=== PATIENT | female | born 1995 | race Caucasian/White ===

== ENCOUNTER 2018-02-27 11:31 | Inpatient (IN) | payer MEDICAID ==
[2018-02-27] MEDS: INSULIN REGULAR 100 UNIT/ML 3ML VIAL. IV (11:45)
[2018-02-27 12:06] LABS: BILIRUBIN,URINE NEGATIVE (NEG); CLARITY,URINE CLEAR; COLOR,URINE YELLOW; GLUCOSE,URINE >=1000 mg/dL (NEG); NITRITE,URINE NEGATIVE (NEG); PROTEIN,URINE 30 mg/dL (NEG-TRACE); UROBILINOGEN,URINE 0.2 mg/dL (0.2 mg/dL)
[2018-02-27 12:06] LABS: URINE HCG POC HCG NEGATIVE (Negative)
[2018-02-27] MEDS: IV NORMAL SALINE 1000ML BAG 1,000 ML IV ×3 (12:17→13:30)
[2018-02-27 12:18] LABS: BACTERIA,URINE FEW /HPF (0-FEW); SQUAMOUS EPITHELIAL CELL,UR MOD /LPF
[2018-02-27 12:19] LABS: TRICHOMONAS,URINE PRESENT
[2018-02-27 12:25] LABS: BASO # 0.1 x10^3/uL (0.0-0.2); BASO % 0 % (0-3); EOS % 0 % (0-3); HEMATOCRIT 50.5 % (36.0-47.0); HEMOGLOBIN 15.1 g/dL (12.0-15.5); LYMPH # 3.2 x10^3/uL (1.0-4.8); LYMPH % 10 % (24-48); MEAN CORPUSCULAR HEMOGLOBIN 29 pg (25-35); MEAN CORPUSCULAR HGB CONC 30 g/dL (31-37); MEAN CORPUSCULAR VOLUME 97 fL (79-100); MONO # 0.9 x10^3/uL (0.0-1.1); MONO % 3 % (0-9); NEUT # 28.1 x10^3uL (1.8-7.7); NEUT % 87 % (31-73); PLATELET COUNT 442 x10^3/uL (140-400); RED CELL DISTRIBUTION WIDTH 15.2 % (11.5-14.5); WHITE BLOOD COUNT 32.4 x10^3/uL (4.0-11.0)
[2018-02-27 12:37] LABS: ALBUMIN 4.4 g/dL (3.4-5.0); ALBUMIN/GLOBULIN RATIO 0.8 (1.0-1.7); ALK PHOS 308 U/L (46-116); ALT (SGPT) 45 U/L (14-59); ANION GAP 34 (6-14); AST (SGOT) 43 U/L (15-37); BLOOD UREA NITROGEN 17 mg/dL (7-20); BUN/CREATININE RATIO 13 (6-20); CALCIUM 10.3 mg/dL (8.5-10.1); CHLORIDE 96 mmol/L (98-107); CREATININE 1.3 mg/dL (0.6-1.0); GFR 51.7; PHOSPHORUS 7.7 mg/dL (2.6-4.7); POTASSIUM 5.1 mmol/L (3.5-5.1); SODIUM 135 mmol/L (136-145); TOTAL BILIRUBIN 0.3 mg/dL (0.2-1.0); TOTAL PROTEIN 9.9 g/dL (6.4-8.2)
[2018-02-27 12:39] LABS: ADD MAN DIFF? YES
[2018-02-27 12:45] LABS: CARBON DIOXIDE 5 mmol/L (21-32); GLUCOSE 702 mg/dL (70-99)
[2018-02-27] MEDS: INSULIN,REGULAR 150 UNIT DRIP 150 ML IV (12:57)
[2018-02-27] MEDS: AZITHROMYCIN 250 MG TABLET. PO (13:00)
[2018-02-27] MEDS: metroNIDAZOLE 500 MG TABLET PO (13:00)
[2018-02-27 13:02] LABS: ACETONE SM POS (NEG)
[2018-02-27 13:26] LABS: HCO3 ABG 3 mmol/L (21-28); PCO2 ABG 13 mmHg (35-46); PH ABG 6.99 (7.35-7.45); PO2 ABG 133 mmHg (85-108)
[2018-02-27 13:27] LABS: BASE EXCESS ABG -27 mmol/L (-3-3); FIO2 ABG 21; SAT O2 ABG 97 % (92-99)
[2018-02-27] MEDS: ONDANSETRON PF 4 MG/2 ML VIAL. IV (13:30)
[2018-02-27 13:52] LABS: % BANDS 10 % (0-9); % BASOS 1 % (0-3); % LYMPHS 6 % (24-48); % MONOS 3 % (0-10); % SEGS 80 % (35-66)
[2018-02-27 13:55] LABS: POC GLUCOSE 421 mg/dL (70-99)
[2018-02-27 13:55] LABS: PLT ESTIMATE INCREASED (ADEQUATE); TOXIC GRANULATION MOD
[2018-02-27 14:43] LABS: POC GLUCOSE 338 mg/dL (70-99)
[2018-02-27] MEDS: GADOBUTROL 7.5 MMOL/7.5 ML VIAL IV (15:48)
[2018-02-27 16:20] LABS: POC GLUCOSE 215 mg/dL (70-99)
[2018-02-27] MEDS: INSULIN REGULAR VIAL 150 UNIT in 0.9 % SODIUM CHLORIDE 150ML 150 ML IV (16:35)
[2018-02-27] MEDS ORDERED: IV NORMAL SALINE 1000ML BAG 1,000 ML IV (17:03)
[2018-02-27] MEDS ORDERED: ONDANSETRON PF 4 MG/2 ML VIAL. IV (17:15)
[2018-02-27] MEDS ORDERED: oxyCODONE IR 5 MG TABLET PO (17:15)
[2018-02-27] MEDS ORDERED: 0.9 % SODIUM CHLORIDE 10 ML DISP.SYRIN. IV (17:15)
[2018-02-27 17:35] LABS: POC GLUCOSE 167 mg/dL (70-99)
[2018-02-27 17:53] LABS: INR 1.1 (0.8-1.1); PROTHROMBIN TIME PATIENT 13.3 SEC (11.7-14.0)
[2018-02-27 17:56] LABS: ANION GAP 19 (6-14); BLOOD UREA NITROGEN 12 mg/dL (7-20); CALCIUM 8.9 mg/dL (8.5-10.1); CARBON DIOXIDE 12 mmol/L (21-32); CHLORIDE 108 mmol/L (98-107); CREATININE 0.9 mg/dL (0.6-1.0); GLUCOSE 184 mg/dL (70-99); POTASSIUM 4.3 mmol/L (3.5-5.1); SODIUM 139 mmol/L (136-145)
[2018-02-27 17:59] LABS: PHOSPHORUS 1.5 mg/dL (2.6-4.7)
[2018-02-27 17:59] LABS: MAGNESIUM 2.1 mg/dL (1.8-2.4)
[2018-02-27 18:24] LABS: BASE EXCESS ABG -11 mmol/L (-3-3); HCO3 ABG 14 mmol/L (21-28); PCO2 ABG 28 mmHg (35-46); PO2 ABG 99 mmHg (85-108); SAT O2 ABG 97 % (92-99)
[2018-02-27] MEDS: IV DEXTROSE 5 %-0.45 % NACL 1,000 ML IV ×2 (18:26→22:35)
[2018-02-27] MEDS: POTASSIUM PHOSPHATE DIBASIC 13.6 MMOL in IV NORMAL SALINE 100ML 100 ML IV (18:27)
[2018-02-27 18:29] LABS: FIO2 ABG 21
[2018-02-27 18:37] LABS: LACTIC ACID 2.1 mmol/L (0.4-2.0)
[2018-02-27 18:37] LABS: POC GLUCOSE 136 mg/dL (70-99)
[2018-02-27 19:52] LABS: POC GLUCOSE 157 mg/dL (70-99)
[2018-02-27 21:04] LABS: POC GLUCOSE 169 mg/dL (70-99)
[2018-02-27 21:34] LABS: ANION GAP 15 (6-14); BLOOD UREA NITROGEN 11 mg/dL (7-20); CALCIUM 7.6 mg/dL (8.5-10.1); CARBON DIOXIDE 17 mmol/L (21-32); CHLORIDE 107 mmol/L (98-107); CREATININE 0.7 mg/dL (0.6-1.0); GFR 105.6; GLUCOSE 180 mg/dL (70-99); MAGNESIUM 1.9 mg/dL (1.8-2.4); PHOSPHORUS 2.7 mg/dL (2.6-4.7); POTASSIUM 4.1 mmol/L (3.5-5.1); SODIUM 139 mmol/L (136-145)
[2018-02-27 22:09] LABS: POC GLUCOSE 140 mg/dL (70-99)
[2018-02-27 23:12] LABS: POC GLUCOSE 190 mg/dL (70-99)
[2018-02-28 00:14] LABS: POC GLUCOSE 183 mg/dL (70-99)
[2018-02-28] MEDS: POTASSIUM CHLORIDE IV (00:35)
[2018-02-28] MEDS: 1/2 NORMAL SALINE IV (00:35)
[2018-02-28 01:30] LABS: POC GLUCOSE 151 mg/dL (70-99)
[2018-02-28 01:48] LABS: ADD MAN DIFF? NO
[2018-02-28 01:54] LABS: BASO % 0 % (0-3); EOS % 0 % (0-3); HEMATOCRIT 31.2 % (36.0-47.0); HEMOGLOBIN 10.6 g/dL (12.0-15.5); LYMPH # 2.5 x10^3/uL (1.0-4.8); LYMPH % 16 % (24-48); MEAN CORPUSCULAR HEMOGLOBIN 29 pg (25-35); MEAN CORPUSCULAR HGB CONC 34 g/dL (31-37); MONO % 6 % (0-9); NEUT # 12.6 x10^3uL (1.8-7.7); NEUT % 78 % (31-73); PLATELET COUNT 241 x10^3/uL (140-400); RED BLOOD COUNT 3.61 x10^6/uL (3.50-5.40); RED CELL DISTRIBUTION WIDTH 13.3 % (11.5-14.5); WHITE BLOOD COUNT 16.1 x10^3/uL (4.0-11.0)
[2018-02-28 02:05] LABS: INR 1.1 (0.8-1.1); PROTHROMBIN TIME PATIENT 13.2 SEC (11.7-14.0)
[2018-02-28 02:14] LABS: MEAN CORPUSCULAR VOLUME 87 fL (79-100)
[2018-02-28 02:17] LABS: ANION GAP 14 (6-14); BLOOD UREA NITROGEN 10 mg/dL (7-20); CALCIUM 7.9 mg/dL (8.5-10.1); CARBON DIOXIDE 18 mmol/L (21-32); CHLORIDE 104 mmol/L (98-107); CREATININE 0.7 mg/dL (0.6-1.0); GFR 105.6; GLUCOSE 158 mg/dL (70-99); MAGNESIUM 1.8 mg/dL (1.8-2.4); PHOSPHORUS 2.1 mg/dL (2.6-4.7); POTASSIUM 3.4 mmol/L (3.5-5.1); SODIUM 136 mmol/L (136-145)
[2018-02-28] MEDS ORDERED: DEXTROSE 50% 25 GM / 50ML DISP.SYRIN. IV ×2 (02:45→21:00)
[2018-02-28] MEDS: IV NORMAL SALINE 1000ML BAG 1,000 ML IV ×3 (03:02→19:10)
[2018-02-28] MEDS: INSULIN GLARGINE 300 UNITS/3 ML INSULN.PEN. SQ ×2 (03:03→22:47)
[2018-02-28 06:15] LABS: POC GLUCOSE 83 mg/dL (70-99)
[2018-02-28 07:46] LABS: MRSA BY PCR Negative (Negative)
[2018-02-28] MEDS: INSULIN LISPRO 300 UNITS/3 ML INSULN.PEN. SQ ×5 (08:00→17:06)
[2018-02-28] MEDS: LACTOBACILLUS RHAMNOSUS GG 1 CAPSULE. PO ×2 (10:18→22:36)
[2018-02-28] MEDS ORDERED: tiZANidine 4 MG TABLET. PO (11:45)
[2018-02-28] MEDS: PANTOPRAZOLE 40 MG TABLET.DR. PO (13:26)
[2018-02-28] MEDS: IBUPROFEN 800 MG TABLET. PO ×2 (13:28→22:36)
[2018-02-28] MEDS: LIDOCAINE (700MG/PATCH) PATCH. TD (13:28)
[2018-02-28] MEDS: cefTRIAXone IV Push 1 GM VIAL. IVP (13:29)
[2018-02-28] MEDS: metroNIDAZOLE 500 MG TABLET PO ×2 (14:15→22:36)
[2018-02-28 16:57] LABS: POC GLUCOSE 164 mg/dL (70-99)
[2018-02-28 20:05] LABS: POC GLUCOSE 45 mg/dL (70-99)
[2018-02-28] MEDS: DEXTROSE 50% 25 GM / 50ML DISP.SYRIN. IV (20:12)
[2018-02-28 20:37] LABS: POC GLUCOSE 128 mg/dL (70-99)
[2018-02-28] MEDS ORDERED: INSULIN GLARGINE 300 UNITS/3 ML INSULN.PEN. SQ (21:00)
[2018-02-28 22:00] LABS: POC GLUCOSE 207 mg/dL (70-99)
[2018-02-28] MEDS: PATCH REMOVAL. MC (22:48)
[2018-03-01 03:34] LABS: POC GLUCOSE 253 mg/dL (70-99)
[2018-03-01 04:57] LABS: ADD MAN DIFF? NO
[2018-03-01 05:05] LABS: BASO % 0 % (0-3); EOS # 0.1 x10^3/uL (0.0-0.7); EOS % 1 % (0-3); HEMATOCRIT 30.7 % (36.0-47.0); HEMOGLOBIN 10.3 g/dL (12.0-15.5); LYMPH # 2.4 x10^3/uL (1.0-4.8); LYMPH % 35 % (24-48); MEAN CORPUSCULAR HEMOGLOBIN 30 pg (25-35); MEAN CORPUSCULAR HGB CONC 34 g/dL (31-37); MEAN CORPUSCULAR VOLUME 88 fL (79-100); MONO # 0.3 x10^3/uL (0.0-1.1); MONO % 5 % (0-9); NEUT % 59 % (31-73); PLATELET COUNT 175 x10^3/uL (140-400); RED BLOOD COUNT 3.49 x10^6/uL (3.50-5.40); RED CELL DISTRIBUTION WIDTH 13.6 % (11.5-14.5); WHITE BLOOD COUNT 6.7 x10^3/uL (4.0-11.0)
[2018-03-01 05:28] LABS: ALBUMIN 2.4 g/dL (3.4-5.0); ALBUMIN/GLOBULIN RATIO 0.8 (1.0-1.7); ALK PHOS 147 U/L (46-116); ALT (SGPT) 31 U/L (14-59); ANION GAP 15 (6-14); AST (SGOT) 36 U/L (15-37); BLOOD UREA NITROGEN 8 mg/dL (7-20); BUN/CREATININE RATIO 13 (6-20); CALCIUM 8.1 mg/dL (8.5-10.1); CARBON DIOXIDE 18 mmol/L (21-32); CHLORIDE 104 mmol/L (98-107); CREATININE 0.6 mg/dL (0.6-1.0); GFR 126.2; GLUCOSE 164 mg/dL (70-99); POTASSIUM 3.7 mmol/L (3.5-5.1); SODIUM 137 mmol/L (136-145); TOTAL BILIRUBIN 0.1 mg/dL (0.2-1.0); TOTAL PROTEIN 5.3 g/dL (6.4-8.2)
[2018-03-01] MEDS: metroNIDAZOLE 500 MG TABLET PO ×3 (06:32→22:01)
[2018-03-01] MEDS: PANTOPRAZOLE 40 MG TABLET.DR. PO (07:59)
[2018-03-01] MEDS: LACTOBACILLUS RHAMNOSUS GG 1 CAPSULE. PO ×2 (07:59→20:26)
[2018-03-01] MEDS: INSULIN LISPRO 300 UNITS/3 ML INSULN.PEN. SQ ×4 (08:00→16:33)
[2018-03-01 08:16] LABS: POC GLUCOSE 104 mg/dL (70-99)
[2018-03-01] MEDS: LIDOCAINE (700MG/PATCH) PATCH. TD (09:14)
[2018-03-01] MEDS: IV NORMAL SALINE 1000ML BAG 1,000 ML IV ×2 (10:47→20:25)
[2018-03-01 11:01] LABS: POC GLUCOSE 58 mg/dL (70-99)
[2018-03-01 11:18] LABS: POC GLUCOSE 92 mg/dL (70-99)
[2018-03-01 11:50] LABS: POC GLUCOSE 119 mg/dL (70-99)
[2018-03-01] MEDS: CIPROFLOXACIN HCL 250 MG TABLET. PO ×2 (13:28→20:26)
[2018-03-01 15:27] LABS: HEMOGLOBIN A1C 12.4 % (4.8-5.6)
[2018-03-01 16:28] LABS: POC GLUCOSE 178 mg/dL (70-99)
[2018-03-01 19:09] LABS: POC GLUCOSE 228 mg/dL (70-99)
[2018-03-01] MEDS: INSULIN GLARGINE 300 UNITS/3 ML INSULN.PEN. SQ (20:40)
[2018-03-01] MEDS: PATCH REMOVAL. MC (20:42)
[2018-03-01] MEDS ORDERED: INSULIN GLARGINE HUM REC ANLOG 20 UNIT SQ (21:00)
[2018-03-01 21:19] LABS: POC GLUCOSE 316 mg/dL (70-99)
[2018-03-01 21:19] LABS: POC GLUCOSE 351 mg/dL (70-99)
[2018-03-02] MEDS: metroNIDAZOLE 500 MG TABLET PO ×2 (05:40→15:50)
[2018-03-02 07:58] LABS: POC GLUCOSE 150 mg/dL (70-99)
[2018-03-02] MEDS: INSULIN LISPRO 300 UNITS/3 ML INSULN.PEN. SQ ×3 (08:00→17:05)
[2018-03-02] MEDS: LACTOBACILLUS RHAMNOSUS GG 1 CAPSULE. PO (08:23)
[2018-03-02] MEDS: PANTOPRAZOLE 40 MG TABLET.DR. PO (08:23)
[2018-03-02] MEDS: LIDOCAINE (700MG/PATCH) PATCH. TD (08:24)
[2018-03-02] MEDS: CIPROFLOXACIN HCL 250 MG TABLET. PO (08:24)
[2018-03-02] MEDS: IV NORMAL SALINE 1000ML BAG 1,000 ML IV ×3 (08:34→16:51)
[2018-03-02 09:47] LABS: ANION GAP 9 (6-14); BLOOD UREA NITROGEN 8 mg/dL (7-20); CALCIUM 7.9 mg/dL (8.5-10.1); CARBON DIOXIDE 25 mmol/L (21-32); CHLORIDE 105 mmol/L (98-107); CREATININE 0.5 mg/dL (0.6-1.0); GFR 155.7; GLUCOSE 235 mg/dL (70-99); POTASSIUM 3.6 mmol/L (3.5-5.1); SODIUM 139 mmol/L (136-145)
[2018-03-02 11:02] LABS: POC GLUCOSE 287 mg/dL (70-99)
[2018-03-02 12:46] LABS: POC GLUCOSE 244 mg/dL (70-99)
[2018-03-02 15:14] LABS: POC GLUCOSE 225 mg/dL (70-99)
[2018-03-03 01:56] LABS: POC GLUCOSE 242 mg/dL (70-99)
== END 2018-03-02 17:38 | disposition home or self-care (01) | DRG 871 ==
LOC: ER 11:31 → 5 SOUTH 02-28 15:23 → 1 WEST ICU 13:20
DX: A41.89 Other specified sepsis (principal); G93.41 Metabolic encephalopathy; E10.10 Type 1 diabetes mellitus with ketoacidosis without coma; B97.89 Other viral agents as the cause of diseases classified elsewhere; A08.4 Viral intestinal infection, unspecified; E86.0 Dehydration; M47.816 Spondylosis without myelopathy or radiculopathy, lumbar region; G89.29 Other chronic pain; M51.27 Other intervertebral disc displacement, lumbosacral region; M48.00 Spinal stenosis, site unspecified; N92.6 Irregular menstruation, unspecified; Z87.440 Personal history of urinary (tract) infections; Z88.8 Allergy status to other drugs, medicaments and biological substances; Z79.4 Long term (current) use of insulin; Z79.899 Other long term (current) drug therapy; Z88.6 Allergy status to analgesic agent
CPT/HCPCS: 36415; 36600; 71045; 72158; 80048; 80053; 81001; 81025; 82010; 82805; 82962; 83036; 83605; 83735; 84100; 85007; 85025; 85610; 87040; 87086; 87641; 93005; 96361; 96365; 96366; 96375; 97110-GP; 97162-GP; 97530-GP; 99291; A9585; J0690; J0696; J1815; J2405; J3480; J7030; J7042; Q0144

== ENCOUNTER 2019-11-14 20:38 | Emergency (ER) | payer MEDICAID ==
[~2019-11-14] VITALS: Ht 170.2 cm; Wt 67.0 kg
[~2019-11-14 20:38] MED LIST: CIPR250T30 PO; INSU100C SQ; INSU100I17 SQ; INSU100V8 SQ; METR500T PO; TIZA4CAP3 PO
[2019-11-14] MEDS ORDERED: IV NORMAL SALINE 1000ML BAG 1,000 ML IV ONE (22:15)
[2019-11-14] MEDS ORDERED: IBUPROFEN 400 MG TABLET. PO ONE (22:15)
[2019-11-14 22:24] LABS: BASO % 0 % (0-3); EOS % 1 % (0-3); HEMATOCRIT 35.4 % (36.0-47.0); HEMOGLOBIN 12.1 g/dL (12.0-15.5); LYMPH # 1.5 x10^3/uL (1.0-4.8); LYMPH % 18 % (24-48); MEAN CORPUSCULAR HEMOGLOBIN 31 pg (25-35); MEAN CORPUSCULAR HGB CONC 34 g/dL (31-37); MEAN CORPUSCULAR VOLUME 91 fL (79-100); MONO # 0.7 x10^3/uL (0.0-1.1); MONO % 9 % (0-9); NEUT # 5.8 x10^3/uL (1.8-7.7); NEUT % 72 % (31-73); PLATELET COUNT 217 x10^3/uL (140-400); RED CELL DISTRIBUTION WIDTH 12.5 % (11.5-14.5); WHITE BLOOD COUNT 8.1 x10^3/uL (4.0-11.0)
[2019-11-14 22:37] LABS: CALCIUM 8.9 mg/dL (8.5-10.1); CREATININE 0.7 mg/dL (0.6-1.0); GFR 103.7; POTASSIUM 3.1 mmol/L (3.5-5.1)
[2019-11-14 22:46] LABS: ALBUMIN 2.6 g/dL (3.4-5.0); ALBUMIN/GLOBULIN RATIO 0.5 (1.0-1.7); TOTAL BILIRUBIN 0.3 mg/dL (0.2-1.0); TOTAL PROTEIN 7.4 g/dL (6.4-8.2)
[2019-11-14] MEDS ORDERED: POTASSIUM CHLORIDE 20 MEQ TABLET.ER. PO ONE (23:00)
[2019-11-14 23:06] LABS: BILIRUBIN,URINE NEGATIVE (NEG); CLARITY,URINE CLEAR; COLOR,URINE YELLOW; NITRITE,URINE POSITIVE (NEG); PH,URINE 5.5; PROTEIN,URINE 100 mg/dL (NEG-TRACE); UROBILINOGEN,URINE 0.2 mg/dL (0.2 mg/dL)
[2019-11-14 23:13] LABS: BACTERIA,URINE MODERATE /HPF (0-FEW); SQUAMOUS EPITHELIAL CELL,UR MOD /LPF
[2019-11-14 23:14] LABS: RBC,URINE OCC /HPF (0-2)
[2019-11-15] MEDS ORDERED: IV NORMAL SALINE 1000ML BAG 1,000 ML IV ONE
--- NOTE | 2019-11-15 00:06 | PHYS DOC ---
Past Medical History Past Medical History: Diabetes-Type I (MISBAH BLUE APRN) Past Surgical History: No Surgical History (MISBAH BLUE APRN) Smoking Status: Never Smoker Alcohol Use: None Drug Use: None (MISBAH BLUE APRN) Attending Signature I have participated in the care of this patient and I have reviewed and agree with all pertinent clinical information above including history, exam, and rec ommendations. (ONEYDA CANALES MD) Adult General Chief Complaint Chief Complaint: FLU SYMPTOM HPI HPI Patient is a 24 year old female, coming by her , who presents to the emergency department with complaints of a dry cough, nasal congestion, body aches, fatigue, chills, and a headache for the last 4 days. She reports that she is a type I diabetic and that yesterday her blood sugars were all over the place. Patient states that today her blood sugar has been in the lower 200s and upper 100s. She denies any nausea, vomiting, diarrhea, abdominal pain, CT, polyuria, or polyphagia. She denies any dysuria, increased urinary frequency, or hematuria. Denies any vision changes, numbness, tingling, or weakness, states that the headache is behind her eyes and denies any photophobia. Patient states that her cough has been productive today with thick green sputum being produced. She also reports that her nasal discharge has also been green in color. Really rates her pain a 9 out of 10 on the pain scale, she denies any alleviating factors. Patient states she has not taken any ibuprofen since about 3 PM this afternoon. Patient states she has taken a total of 2 tablets of 200 mg ibuprofen today. (MISBAH BLUE APRN) Review of Systems Review of Systems Complete ROS is negative unless otherwise noted in HPI. (MISBAH BLUE APRN) Current Medications Current Medications Current Medications Medications (Trade) Dose Ordered Sig/Edward Start Time Stop Time Status Last Admin Dose Admin Ibuprofen (Motrin) 600 mg 1X ONCE 11/14/19 22:15 11/14/19 22:16 DC 11/14/19 22:24 600 MG Potassium Chloride (Klor-Con) 40 meq 1X ONCE 11/14/19 23:00 11/14/19 23:01 DC 11/14/19 23:24 40 MEQ Sodium Chloride 1,000 ml @ 1,000 mls/hr 1X ONCE 11/15/19 00:00 11/15/19 00:38 DC (ONEYDA CANALES MD) Allergies Allergies Allergies Coded Allergies Type Severity Reaction Last Updated Verified acetaminophen Allergy Intermediate rash 02/27/18 Yes (ONEYDA CANALES MD) Physical Exam Physical Exam See Above Constitutional: Well developed, well nourished, no acute distress, ill appearance HENT: Normocephalic, atraumatic, bilateral external ears normal, bilateral TMs normal, posterior pharynx normal, oropharynx dry, nose congested with erythema and edema of the nasal turbinates bilaterally, with thick green nasal drainage bilaterally Eyes: PERRLA, conjunctiva injected bilaterally, no discharge. [] Neck: Normal range of motion, no stridor. [] Cardiovascular:Heart rate regular tachycardic rhythm, no murmur [] Lungs & Thorax: Bilateral breath sounds clear to auscultation, Respirations even and unlabored, no retractions, no respiratory distress Skin: Warm, dry, no erythema, no rash. [] Back: No tenderness Extremities: No cyanosis, ROM intact Neurologic: Alert and oriented X 3, no focal deficits noted. [] Psychologic: Affect normal, judgement normal, mood normal. (MISBAH BLUE APRN) Current Patient Data Vital Signs Vital Signs Date Time Temp Pulse Resp B/P (MAP) Pulse Ox O2 Delivery O2 Flow Rate FiO2 11/15/19 00:12 98.3 116 18 119/68 (85) 98 Room Air 98.3 (ONEYDA CANALES MD) Lab Values Laboratory Tests Test 11/14/19 22:07 11/14/19 22:13 11/14/19 22:50 Glucose (Fingerstick) 183 mg/dL (70-99) H White Blood Count 8.1 x10^3/uL (4.0-11.0) Red Blood Count 3.90 x10^6/uL (3.50-5.40) Hemoglobin 12.1 g/dL (12.0-15.5) Hematocrit 35.4 % (36.0-47.0) L Mean Corpuscular Volume 91 fL (79-100) Mean Corpuscular Hemoglobin 31 pg (25-35) Mean Corpuscular Hemoglobin Concent 34 g/dL (31-37) Red Cell Distribution Width 12.5 % (11.5-14.5) Platelet Count 217 x10^3/uL (140-400) Neutrophils (%) (Auto) 72 % (31-73) Lymphocytes (%) (Auto) 18 % (24-48) L Monocytes (%) (Auto) 9 % (0-9) Eosinophils (%) (Auto) 1 % (0-3) Basophils (%) (Auto) 0 % (0-3) Neutrophils # (Auto) 5.8 x10^3/uL (1.8-7.7) Lymphocytes # (Auto) 1.5 x10^3/uL (1.0-4.8) Monocytes # (Auto) 0.7 x10^3/uL (0.0-1.1) Eosinophils # (Auto) 0.0 x10^3/uL (0.0-0.7) Basophils # (Auto) 0.0 x10^3/uL (0.0-0.2) Sodium Level 136 mmol/L (136-145) Potassium Level 3.1 mmol/L (3.5-5.1) L Chloride Level 102 mmol/L (98-107) Carbon Dioxide Level 23 mmol/L (21-32) Anion Gap 11 (6-14) Blood Urea Nitrogen 10 mg/dL (7-20) Creatinine 0.7 mg/dL (0.6-1.0) Estimated GFR (Cockcroft-Gault) 103.7 BUN/Creatinine Ratio 14 (6-20) Glucose Level 184 mg/dL (70-99) H Calcium Level 8.9 mg/dL (8.5-10.1) Total Bilirubin 0.3 mg/dL (0.2-1.0) Aspartate Amino Transferase (AST) 23 U/L (15-37) Alanine Aminotransferase (ALT) 44 U/L (14-59) Alkaline Phosphatase 174 U/L (46-116) H Total Protein 7.4 g/dL (6.4-8.2) Albumin 2.6 g/dL (3.4-5.0) L Albumin/Globulin Ratio 0.5 (1.0-1.7) L Acetone Level Neg (NEG) Urine Color Yellow Urine Clarity Clear Urine pH 5.5 Urine Specific Dinosaur >=1.030 Urine Protein 100 mg/dL (NEG-TRACE) Urine Glucose (UA) >=1000 mg/dL (NEG) Urine Ketones (Stick) Negative mg/dL (NEG) Urine Blood Small (NEG) Urine Nitrite Positive (NEG) Urine Bilirubin Negative (NEG) Urine Urobilinogen Dipstick 0.2 mg/dL (0.2 mg/dL) Urine Leukocyte Esterase Negative (NEG) Urine RBC Occ /HPF (0-2) Urine WBC 5-10 /HPF (0-4) Urine Squamous Epithelial Cells Mod /LPF Urine Bacteria Moderate /HPF (0-FEW) Urine Mucus Mod /LPF Laboratory Tests 11/14/19 22:13 Laboratory Tests 11/14/19 22:13 (ONEYDA CANALES MD) EKG EKG [] (MISBAH BLUE APRN) Radiology/Procedures Radiology/Procedures [] (MISBAH BLUE APRN) Course & Med Decision Making Course & Med Decision Making Pertinent Labs and Imaging studies reviewed. (See chart for details) Patient is a 24-year-old type I diabetic who presented to the emergency room with complaints of flulike symptoms for the last 4 days. In the emergency department her CBC was unremarkable, CMP revealed a potassium of 3.1, glucose of 183, alkaline phosphatase of 174, was otherwise unremarkable; UA was negative for ketones, positive for nitrites, white blood cell count was 5-10, acetone level was negative. Patient was afebrile on arrival 600 mg of ibuprofen, 1000 mL NS was given in the emergency department. Patient was given 40 mEq of potassium by mouth for hypokalemia. Pt's temperature decreased to 98.4 oral after ibuprofen and fluids. PT's heart rate remained 118-120 after first liter of NS and medication. A second liter of NS was ordered but patient declined the medication and states that she feels better. PT was sent home with dx of flu like sx, tachycardia, and fever. Encouraged increased fluids, rest, OTC flu medications for symptoms, and ibuprofen 600-800 mg every 6 hours as needed for fever/pain. Pt verbalized an understanding of home care, medications, follow-up, and return to ED instructions and was in agreement with the plan of care. 0200- While reviewing chart it was noticed that patient had nitrate positive UTI, electronic prescription for keflex 500 mg BID was sent to pharmacy on file. I called the patient and left a voicemail requesting her to call the ER and advising her that a prescription had been sent to her pharmacy. Pt was not notified of UTI findings in the voicemail, just notified to call ER and that a prescription had been sent to her pharmacy. [] (MISBAH BLUE APRN) Dragon Disclaimer Dragon Disclaimer This electronic medical record was generated, in whole or in part, using a voice recognition dictation system. (MISBAH BLUE APRN) Departure Departure Impression: Primary Impression: Flu-like symptoms Additional Impressions: Fever Tachycardia with heart rate 100-120 beats per minute UTI (urinary tract infection) Disposition: HOME, SELF-CARE Condition: STABLE Referrals: NO PCP (PCP) Patient Instructions: Fever, Adult, [id number], Influenza, Adult, [id number] Additional Instructions: Take 600-800 mg of ibuprofen every 6 hours as needed for fever. Increase clear fluids and rest. Diet as tolerated. Recommend use of [id number] flu medications as needed for relief of your symptoms. Follow up with your primary care doctor if symptoms persist, return to the ER symptoms worsen. Scripts Cephalexin (KEFLEX) 500 Mg Capsule 500 MG PO BID for 7 Days, #14 CAP 0 Refills Prov: MISBAH BLUE APRN 11/15/19 Problem Qualifiers Additional Impressions: Fever Fever type: unspecified Qualified Codes: R50.9 - Fever, unspecified UTI (urinary tract infection) Urinary tract infection type: site unspecified Hematuria presence: without hematuria Qualified Codes: N39.0 - Urinary tract infection, site not specified MISBAH BLUE APRN Nov 15, 2019 00:06 ONEYDA CANALES MD Nov 15, 2019 05:54
[2019-11-15 00:12] VITALS: BP 119/68
[2019-11-15] MEDS ORDERED: CEPH-264 PO (02:03)
== END 2019-11-15 00:26 | disposition home or self-care (01) ==
LOC: ER 20:38
DX: N39.0 Urinary tract infection, site not specified (principal); R09.81 Nasal congestion; R51 Headache; R50.9 Fever, unspecified; R00.0 Tachycardia, unspecified; E10.9 Type 1 diabetes mellitus without complications; Z88.6 Allergy status to analgesic agent
CPT/HCPCS: 36415; 80053; 81001; 82010; 82962; 85025; 87086; 87186; 99283; J7030; 96360